=== PATIENT | female | born 1960 | race Caucasian/White ===

== ENCOUNTER 2025-02-22 15:09 | Emergency (ER) | payer SELFPAY ==
[2025-02-22 15:41] LABS: BASOPHILS ABSOLUTE AUTO 0.0 K/mm3 (0.0-0.2); BASOPHILS PERCENT AUTO 0.6 % (0.0-1.0); EOSINOPHILS ABSOLUTE AUTO 0.1 K/mm3 (0.0-0.4); EOSINOPHILS PERCENT AUTO 1.4 % (0.0-6.0); IMMATURE GRAN ABSOLUTE AUTO 0.01 K/mm3 (0.00-0.05); IMMATURE GRAN PERCENT AUTO 0.2 % (0.0-0.4); LYMPHOCYTES ABSOLUTE AUTO 2.4 K/mm3 (1.0-4.8); LYMPHOCYTES PERCENT AUTO 47.6 % (24.0-44.0); MEAN PLATELET VOLUME 12.6 fl (9.4-12.3); MONOCYTES ABSOLUTE AUTO 0.5 K/mm3 (0.0-0.8); MONOCYTES PERCENT AUTO 9.5 % (0.0-8.0); NEUTROPHILS ABSOLUTE AUTO 2.0 K/mm3 (1.8-7.7); NEUTROPHILS PERCENT AUTO 40.7 % (41.0-71.0); NRBC ABSOLUTE 0.00 (0.00-0.02); NRBC PERCENT 0.0 % (0.0-0.2); PLATELET COUNT,PLT 186 K/mm3 (150-400); RED BLOOD CELL COUNT 5.56 M/mm3 (4.10-5.30); WHITE BLOOD CELL COUNT,WBC 4.94 K/mm3 (3.9-11.3)
[2025-02-22 16:10] LABS: A/G RATIO 0.9 (1-2); ALANINE AMINOTRANSFERASE,ALT 26.0 U/L (14-59); ASPARTATE AMNIOTRANSFERASE,AST 24.0 U/L (15-37); BILIRUBIN TOTAL 0.4 mg/dL (0.2-1.0); BLOOD UREA NITROGEN,BUN 21.0 mg/dL (7-18); CARBON DIOXIDE,CO2 29.0 mEq/L (21-32); CHLORIDE,CL 105.0 mEq/L (98-107); CREATINE KINASE,CK 108.0 U/L (26-192); CREATININE 1.2 mg/dL (0.55-1.02); EST CRCL DRUG DOSING (CG) 43.17 mL/min; ESTIMATED GFR 50.0 mL/min (>60); GLUCOSE RANDOM 97.0 mg/dL (70-99); POTASSIUM,K 4.5 mEq/L (3.5-5.1); PROTEIN TOTAL,TP 7.7 g/dl (6.4-8.2); SODIUM,NA 142.0 mEq/L (136-145); TROPONIN I HIGH SENSITIVITY 10.0 pg/mL (<=51)
[2025-02-22 16:16] LABS: ETHANOL BLOOD MEDICAL 0.0 gm% (0.00)
[2025-02-22 18:18] VITALS: BP 167/96; PULSE 63
== END 2025-02-22 17:15 | disposition home or self-care (01) ==
LOC: JD.ED 15:09
DX: E86.0 Dehydration (principal); N28.9 Disorder of kidney and ureter, unspecified; R53.83 Other fatigue
CPT/HCPCS: 36415; 71045; 71045-26; 80053; 80307; 82550; 83690; 83735; 83880; 84484; 85025; 87426-QW; 93005; 99283; 99285